=== PATIENT | female | born 1955 | race Caucasian/White ===

== ENCOUNTER 2017-06-08 14:44 | Emergency (ER) | payer BC ==
--- NOTE | 2017-06-08 16:02 | EDPHY ---
H & P Time Seen by Provider: 06/08/17 15:25 HPI/ROS: Chief complaint. Double vision HPI. Patient is a 62-year-old female who presents emergency department with double vision for 2-3 weeks. It is only present when driving and watching TV. However her vision is normal independently. 4 days ago she noted that her right eye seemed to be bulging out and not tracking. Patient is visiting from [place] with her . She quit her Synthroid 4 days ago thinking this may be hyperthyroidism. No headache. She does wear contact lens. 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 ROS Constitutional. no fever/chills, no weakness Eyes. Double vision ENT. no sore throat, no nasal drainage Cardiovascular. no chest pain Respiratory. no shortness of breath, no cough Abdominal. no abdominal pain, no nausea/vomiting, no diarrhea . no problems urinating MS. no calf pain/swelling, no neck/back pain, no joint pain Skin. no rash Lymph. no swollen glands Neuro. no headache, no dizziness, no difficulty walking or with speech Past Medical/Surgical History: Hyper thyroid status post thyroidectomy 1 year ago Social History: , nonsmoker, no alcohol Smoking Status: Current every day smoker Physical Exam: General Appearance: Alert well-developed female mild distress vital signs stable. Eyes: Eyes do appear to be slightly bulge E. Pupils are equal round reactive. The right eye does not track with upward gaze matching the left eye. She has double vision with looking up and to the right.. ENT, Mouth: Mucous membranes are moist. Respiratory: There are no retractions, lungs are clear to auscultation. Cardiovascular: Regular rate and rhythm. Gastrointestinal: Abdomen is soft and nontender, no masses, bowel sounds normal. Neurological: Awake and alert, sensory and motor exams grossly normal. Skin: Warm and dry, no rashes. Musculoskeletal: Neck is supple nontender. Extremities symmetrical, full range of motion. Psychiatric: Patient is oriented X 3, there is no agitation. Constitutional: Initial Vital Signs Temperature (C) 36.6 C 06/08/17 14:45 Heart Rate 73 06/08/17 14:45 Respiratory Rate 16 06/08/17 14:45 Blood Pressure 134/78 H 06/08/17 14:45 O2 Sat (%) 95 06/08/17 14:45 O2 Delivery Mode Room Air Allergies/Adverse Reactions: No Known Allergies Allergy (Unverified 06/08/17 14:50) Home Medications: Medication Instructions Recorded Synthroid 06/08/17 methylPREDNISolone [Medrol Dose 1 each PO AD #1 ea 06/08/17 Lucas] Medical Decision Making - Diagnostics Imaging Results: Imaging Impressions Brain MRI 06/08/17 16:17 Impression: Normal MRI examination of the brain.. Enlargement of the extraocular muscles, right greater than left, suggestive of Graves' ophthalmopathy. Results called to Dr. Vinny Patino at 6:00 PM. Procedures: IV normal saline Visual acuity right eye cannot read any of the letters even top line with corrective lenses; left eye 20/70 with corrective lenses ED Course/Re-evaluation: I consulted discussed case with Dr. Walter for endocrinology. He recommends no treatment from his in and deferment to Ophthalmology I consulted and discussed the case with Dr. Parada ophthalmology. He recommends Medrol Dosepak. We reviewed the MRI together. Radiologist will call Dr. Parada directly regarding optic nerve impingement possibility. Dr. Parada will see the patient in the office tomorrow morning I have discussed this treatment plan with the patient and family. They expressed understanding and agreement Differential Diagnosis: I considered brain tumor, CVA. 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 No obvious evidence for optic nerve compression. Plan is Medrol Dosepak and close ophthalmology follow-up - Data Points Laboratory Results: Laboratory Results 06/08/17 13:55 06/08/17 13:55 06/08/17 06/08/17 13:55 13:55 WBC 7.68 10^3/uL 10^3/uL (3.80-9.50) RBC 4.69 10^6/uL 10^6/uL (4.18-5.33) Hgb 14.1 g/dL g/dL (12.6-16.3) Hct 42.3 % % (38.0-47.0) MCV 90.2 fL fL (81.5-99.8) MCH 30.1 pg pg (27.9-34.1) MCHC 33.3 g/dL g/dL (32.4-36.7) RDW 13.1 % % (11.5-15.2) Plt Count 350 10^3/uL 10^3/uL (150-400) MPV 10.1 fL fL (8.7-11.7) Neut % (Auto) 56.3 % % (39.3-74.2) Lymph % (Auto) 35.0 % % (15.0-45.0) Gilliam % (Auto) 6.3 % % (4.5-13.0) Eos % (Auto) 1.2 % % (0.6-7.6) Baso % (Auto) 0.9 % % (0.3-1.7) Nucleat RBC Rel Count 0.0 % % (0.0-0.2) Absolute Neuts (auto) 4.33 10^3/uL 10^3/uL (1.70-6.50) Absolute Lymphs (auto) 2.69 10^3/uL 10^3/uL (1.00-3.00) Absolute Monos (auto) 0.48 10^3/uL 10^3/uL (0.30-0.80) Absolute Eos (auto) 0.09 10^3/uL 10^3/uL (0.03-0.40) Absolute Basos (auto) 0.07 10^3/uL 10^3/uL (0.02-0.10) Absolute Nucleated RBC 0.00 10^3/uL 10^3/uL (0-0.01) Immature Gran % 0.3 % % (0.0-1.1) Immature Gran # 0.02 10^3/uL 10^3/uL (0.00-0.10) Sodium 143 mEq/L mEq/L (135-145) Potassium 4.5 mEq/L mEq/L (3.5-5.2) Chloride 103 mEq/L mEq/L (97-110) Carbon Dioxide 29 mEq/l mEq/l (22-31) Anion Gap 11 mEq/L mEq/L (8-16) BUN 17 mg/dL mg/dL (7-23) Creatinine 0.7 mg/dL mg/dL (0.6-1.0) Estimated GFR > 60 Glucose 111 mg/dL H mg/dL (70-100) Calcium 10.0 mg/dL mg/dL (8.5-10.4) TSH 0.025 uIU/mL L uIU/mL (0.465-4.680) Medications Given: Discontinued Medications Sodium Chloride (Ns) 1,000 mls @ 0 mls/hr IV ONCE ONE; Wide Open PRN Reason: Protocol Stop: 06/08/17 16:18 Last Admin: 06/08/17 16:57 Dose: 1,000 mls Departure - Departure Disposition: Home, Routine, Self-Care Clinical Impression: Graves disease Condition: Fair Instructions: Graves Disease (ED) Referrals: NONE *PRIMARY CARE P,. [Primary Care Provider] - As per Instructions Samuel Parada MD [Medical Doctor] - 1 day without fail Prescriptions: methylPREDNISolone [Medrol Dose Lucas] 1 each PO AD #1 ea
[2017-06-08] MEDS ORDERED: NS 1,000 ML IV ONE (16:17)
[2017-06-08 16:22] LABS: PLATELET COUNT 350 10^3/uL (150-400)
[2017-06-08] MEDS ORDERED: GADOBUTROL 10 ML VIAL IVP ONE (16:52)
[2017-06-08 18:33] VITALS: BP 123/69
== END 2017-06-08 18:33 | disposition home or self-care (01) ==
DX: E05.00 Thyrotoxicosis with diffuse goiter without thyrotoxic crisis or storm (principal); E86.9 Volume depletion, unspecified; F17.200 Nicotine dependence, unspecified, uncomplicated
CPT/HCPCS: A9585